=== PATIENT | male | born 1980 | race American Indian/Alaskan Native ===

== ENCOUNTER 2019-07-22 08:19 | Emergency (ER) | payer OTHER ==
[2019-07-22] MEDS ORDERED: TORADOL IM ONE (08:34)
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
[2019-07-22 09:51] VITALS: BP 120/70
== END 2019-07-22 09:50 | disposition home or self-care (01) ==
LOC: ED 08:19
DX: S43.002A Unspecified subluxation of left shoulder joint, initial encounter (principal); S39.012A Strain of muscle, fascia and tendon of lower back, initial encounter; F17.200 Nicotine dependence, unspecified, uncomplicated; Z98.890 Other specified postprocedural states; Z79.899 Other long term (current) drug therapy; V49.49XA Driver injured in collision with other motor vehicles in traffic accident, initial encounter; Y93.89 Activity, other specified; Y92.410 Unspecified street and highway as the place of occurrence of the external cause; Y99.8 Other external cause status
CPT/HCPCS: 72100; 73030; 96372; 99283; J1885

== ENCOUNTER 2020-03-31 04:21 | Emergency (ER) | payer OTHER ==
[2020-03-31 04:26] VITALS: BP 125/70
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
[2020-03-31] MEDS ORDERED: CYCLOBENZAPRINE 10 MG TAB PO ONE (07:50)
[2020-03-31] MEDS ORDERED: dexAMETHasone 20 MG/5 ML VIAL IM ONE (07:50)
--- NOTE | 2020-03-31 08:30 | XRay Report ---
RIGHT RIBS WITH PA CHEST, 4 VIEWS HISTORY: Right rib injury while sparring COMPARISON: None. IMPRESSION: A nondisplaced right lateral ninth rib fracture is identified. The remaining right ribs a re grossly intact. The right lung is well-aerated. Sternotomy wires are identified indicating previou s thoracic surgery, correlate with history. Heart and lungs are unremarkable. Signer Name: Jaquan Carr Jr, MD Signed: 03/31/2020 8:25 AM Workstation Name: [id number]
== END 2020-03-31 09:47 | disposition home or self-care (01) ==
LOC: ED 04:21
DX: S22.32XA Fracture of one rib, left side, initial encounter for closed fracture (principal); F17.200 Nicotine dependence, unspecified, uncomplicated; Z79.899 Other long term (current) drug therapy; W51.XXXA Accidental striking against or bumped into by another person, initial encounter; Y93.89 Activity, other specified; Y92.89 Other specified places as the place of occurrence of the external cause; Y99.8 Other external cause status
CPT/HCPCS: 71101; 96372; 99283; J1100